=== PATIENT | female | born 1975 | race Caucasian/White ===

== ENCOUNTER 2016-12-07 17:00 | Emergency (ER) | payer OTHER ==
[2016-12-07 17:19] LABS: Bilirubin Negative (Negative); Blood, Urine Negative (Negative); Glucose, Urine (Dipstick) Negative (Negative); Ketone, Urine Negative (Negative); Nitrite Negative (Negative); Protein, Urine (Dipstick) Negative (Neg-Trace); Urobilinogen 0.2 mg/dL (0.2-1.0)
== END 2016-12-07 17:52 | disposition home or self-care (01) ==
LOC: SCSER 17:00
DX: D25.9 Leiomyoma of uterus, unspecified (principal); J45.909 Unspecified asthma, uncomplicated; F17.210 Nicotine dependence, cigarettes, uncomplicated; Z79.899 Other long term (current) drug therapy
CPT/HCPCS: 81003; 81025; 99284

== ENCOUNTER 2017-02-11 19:10 | Emergency (ER) | payer OTHER ==
[2017-02-11] MEDS ORDERED: Ondansetron HCl/PF 4 MG/2 ML Vial ONE (19:40)
[2017-02-11 20:06] LABS: #Basophils 0.1 thou/uL (0.0-0.2); #Eosinphils 0.1 thou/uL (0.0-0.7); #Monocytes 0.5 thou/uL (0.11-0.59); #Neutrophils 4.5 thou/uL (1.40-6.50); %Basophils 0.9 % (0.0-1.0); %Eosinophils 1.7 % (0.0-10.0); %Lymphocytes 36.3 % (21.0-51.0); %Monocytes 5.6 % (0.0-10.0); Mean Platelet Volume 6.8 fL (7.4-10.4); Red Blood Cell (RBC) Count 4.49 mill/uL (4.20-5.40); White Blood Cell (WBC) Count 8.1 thou/uL (4.8-10.8)
[2017-02-11 20:24] LABS: ALT (SGPT) 18 U/L (8-55); AST (SGOT) 17 U/L (5-34); Alkaline Phosphatase 62 U/L (40-150); Anion Gap 13 mmol/L (10-20); BUN (Urea Nitrogen) 18 mg/dL (7.0-18.7); Bilirubin, Total 0.3 mg/dL (0.2-1.2); Calc. Creatinine Clearance 0 mL/min (70-130); Calcium 10.2 mg/dL (7.8-10.44); Carbon Dioxide 26 mmol/L (22-29); Chloride 105 mmol/L (98-107); Estimated GFR-MDRD 79; Lipase 26 U/L (8-78); Protein, Total 7.1 g/dL (6.0-8.3)
--- NOTE | 2017-02-11 22:26 | CT ---
NONCONTRAST ENHANCED CT IMAGES ABDOMEN AND PELVIS 02/11/17 HISTORY: Patient has history of abdominal pain. Allergic to IV contrast. Noncontrast enhanced CT images of the abdomen and pelvis demonstrate the lung bases to be unremarkabl e. No evidence of free intraperitoneal air seen. Solid organs are difficult to assess as IV contrast was not given. No definite evidence of abnormalit ies, however, seen in the liver and spleen, adrenal glands and kidneys. Pancreas is unremarkable. The gallbladder has been surgically removed. No dilated loops of small bowel seen. The patient has had a previous hysterectomy. IMPRESSION: No definite abnormality seen on this limited exam as IV and oral contrast was not given. No evidence of bowel obstruction or ileus is seen. POS: [facility]
== END 2017-02-11 21:00 | disposition home or self-care (01) ==
LOC: SCSER 19:10
DX: K59.00 Constipation, unspecified (principal); B20 Human immunodeficiency virus [HIV] disease; J45.909 Unspecified asthma, uncomplicated; F17.210 Nicotine dependence, cigarettes, uncomplicated; F43.10 Post-traumatic stress disorder, unspecified; Z79.899 Other long term (current) drug therapy
CPT/HCPCS: 74176; 80053; 83690; 85025; 96361; 96374; J2405

== ENCOUNTER 2017-04-03 17:06 | Emergency (ER) | payer OTHER ==
[2017-04-03] MEDS ORDERED: Acetaminophen 500 MG TAB ONE (17:24)
--- NOTE | 2017-04-03 19:14 | RAD ---
LUMBAR SPINE TWO VIEWS: 04/03/17 HISTORY: 41-year-old female with low back pain since yesterday after exercising. COMPARISON: 11/09/07. FINDINGS: Mild disc osteophytosis. No acute fracture or dislocation or malalignment. No focal bone lesion. IMPRESSION: Mild spondylosis. Stable from prior study. No acute process. POS: [facility]
== END 2017-04-03 18:15 | disposition home or self-care (01) ==
LOC: SCSER 17:06
DX: M54.5 Low back pain (principal); B20 Human immunodeficiency virus [HIV] disease; J45.909 Unspecified asthma, uncomplicated; F17.210 Nicotine dependence, cigarettes, uncomplicated
CPT/HCPCS: 72100